=== PATIENT | male | born 1995 | race Caucasian/White ===

== ENCOUNTER 2017-10-10 12:37 | Emergency (ER) | payer BC ==
[~2017-10-10] VITALS: Ht 182.9 cm; Wt 80.1 kg
[2017-10-10] MEDS ORDERED: ONDANSETRON 2MG/ML, 2ML IVPush ONE ×2 (13:30→17:00)
[2017-10-10] MEDS ORDERED: HYDROmorphone 1 MG/ML, 1ML IVPush PRN (13:30)
[2017-10-10] MEDS ORDERED: SODIUM CHLORIDE FLUSH 10ML SYR IVF ONE (13:30)
[2017-10-10] MEDS ORDERED: ONDANSETRON 2MG/ML, 2ML ONE ×2 (13:49→16:38)
[2017-10-10] MEDS ORDERED: HYDROmorphone 1 MG/ML, 1ML ONE ×2 (13:50→14:36)
[2017-10-10 13:52] LABS: HEMATOCRIT 51.5 % (39.2-51.8); HEMOGLOBIN 17.2 g/dL (13.7-18.0); WHITE BLOOD COUNT 9.7 x10^3/uL (4.5-13.2)
[2017-10-10 14:03] LABS: BLOOD UREA NITROGEN 10 mg/dL (7-18)
[2017-10-10] MEDS ORDERED: morphine SULFATE 10 MG/ML, 1ML IVPush PRN (14:30)
[2017-10-10] MEDS ORDERED: morphine SULFATE 10 MG/ML, 1ML ONE (16:09)
[2017-10-10 18:42] VITALS: BP 123/82
== END 2017-10-10 18:44 | disposition home or self-care (01) ==
LOC: ED 15:00
DX: N13.2 Hydronephrosis with renal and ureteral calculous obstruction (principal)
CPT/HCPCS: 36415; 71010; 76770; 80048; 81001; 82040; 85025; 87040; 87086; 96374; 96375; 99285; J1170; J2270; J2405